=== PATIENT | female | born 1950 | race Caucasian/White ===

== ENCOUNTER 2020-12-02 10:47 | Emergency (ER) | payer MEDICAID ==
[~2020-12-02] VITALS: Ht 152.4 cm; Wt 77.1 kg
--- NOTE | 2020-12-02 11:10 | NUR ---
Patient came in to the er c/o dizziness and loss of smell and taste x 4 days. On room air, breathing evenly and unlabored. Connected to the monitor and pulse ox. Kept comfortable, will continue to monitor accordingly.
--- NOTE | 2020-12-02 11:32 | NUR ---
IV started and blood drawned and sent to lab.
[2020-12-02 12:12] LABS: BASOPHILS % (AUTO) 0.4 % (0.0-2.0); EOSINOPHILS % (AUTO) 0.7 % (0.0-6.0); HEMATOCRIT 41 % (33-45); HEMOGLOBIN 13.6 g/dL (11.5-14.8); LYMPHOCYTES # (AUTO) 1.9 K/uL (0.8-4.8); LYMPHOCYTES % (AUTO) 35.6 % (20.0-44.0); MEAN CORPUSCULAR HGB CONC 34 g/dl (31.0-36.0); MEAN CORPUSCULAR VOLUME 86 fL (82-100); MONOCYTES # (AUTO) 0.5 K/uL (0.1-1.30); NEUTROPHILS # (AUTO) 2.9 K/uL (1.8-8.9); NEUTROPHILS % (AUTO) 54.3 % (43.0-81.0); PLATELET COUNT (AUTO) 204 K/uL (150-450); RED BLOOD CELL COUNT(AUTO) 4.69 MIL/uL (4.0-5.2); WHITE BLOOD COUNT (AUTO) 5.3 K/uL (4.3-11.0)
--- NOTE | 2020-12-02 12:16 | NUR ---
covid + per lab
[2020-12-02 12:46] LABS: CALCIUM, SERUM 8.8 mg/dL (8.5-10.1); CARBON DIOXIDE 23 mmol/L (21-32); CHLORIDE 107 mmol/L (98-107); CREATININE 0.8 mg/dL (0.6-1.3); GLUCOSE 95 mg/dL (74-106); POTASSIUM 3.6 mmol/L (3.5-5.1); SODIUM SERUM 142 mmol/L (136-145); UREA NITROGEN, BLOOD 17 mg/dL (7-18)
[2020-12-02 12:53] LABS: ALANINE AMINOTRANSFERASE 34 U/L (12-78); ALBUMIN 3.5 g/dL (3.4-5.0); ALKALINE PHOSPHATASE 75 U/L (46-116); ASPARTATE AMINOTRANSFERASE 28 U/L (15-37); BILIRUBIN,DIRECT 0.1 mg/dL (0.0-0.2); BILIRUBIN,TOTAL 0.4 mg/dL (0.2-1.0); TOTAL PROTEIN, SERUM 7.8 g/dL (6.4-8.2)
[2020-12-02 13:08] VITALS: BP 118/77
--- NOTE | 2020-12-02 13:08 | NUR ---
Patient discharged to home in stable condition. Written and verbal after care instructions given. Patient verbalizes understanding of instruction.IV removed. Catheter intact and site benign. Pressure and 4x4 applied to site. No bleeding noted.
== END 2020-12-02 13:08 | disposition home or self-care (01) ==
LOC: ER 10:48
DX: U07.1 COVID-19 (principal); R43.9 Unspecified disturbances of smell and taste; Z90.49 Acquired absence of other specified parts of digestive tract; J98.11 Atelectasis; I51.7 Cardiomegaly; I70.0 Atherosclerosis of aorta
CPT/HCPCS: 36415; 70450; 71045; 80048; 80076; 83605; 84145; 84484; 85025; 85730; 87040 ×2; 87426; 93005; 99285; C9803